=== PATIENT | male | born 1955 | race Caucasian/White ===

== ENCOUNTER 2016-09-26 09:02 | Emergency (ER) | payer OTHER ==
[2016-09-26 09:10] VITALS: RESP 20
[2016-09-26] MEDS ORDERED: LORAZEPAM 0.5 MG TAB PO ONE (09:42)
[2016-09-26] MEDS ORDERED: LORAZEPAM 0.5 MG TAB ONE (09:43)
[2016-09-26 10:24] VITALS: BP 138/80; PULSE 67; TEMP 97; O2SAT 99
[2016-09-26 10:25] LABS: APPEARANCE,URINE Clear; BILIRUBIN,URINE NEGATIVE (NEGATIVE); COLOR,URINE Yellow; GLUCOSE, URINE (UA) NEGATIVE (NEGATIVE); KETONES,URINE NEGATIVE (NEGATIVE); LEUKOCYTE ESTERASE ,URINE NEGATIVE (NEGATIVE); NITRATE,URINE NEGATIVE (NEGATIVE); OCCULT BLOOD,URINE NEGATIVE (NEG-TRACE); PH,URINE 8.5; UROBILINOGEN,URINE 0.2 (0.2-1.0 EU)
[2016-09-26 10:44] LABS: RBC,URINE NEGATIVE (0-3AV/HPF); WBC,URINE NEGATIVE (0-5AV/HPF)
== END 2016-09-26 11:47 | disposition home or self-care (01) | DRG 880 ==
LOC: ED 09:02
DX: F41.9 Anxiety disorder, unspecified (principal); R35.0 Frequency of micturition
CPT/HCPCS: 81001; 93005; 99283

== ENCOUNTER 2016-10-31 07:22 | Day surgery (SDC) | payer OTHER ==
[2016-10-31] MEDS ORDERED: BUPIVACAINE/EPI 0.5% 10 ML SOL INFIL ONE ×2 (07:30→08:31)
[2016-10-31] MEDS ORDERED: MIDAZOLAM 2 MG/2 ML SOL ONE (07:44)
[2016-10-31] MEDS ORDERED: LIDOCAINE HCL 1% MPF SOL ONE (07:44)
[2016-10-31] MEDS ORDERED: ONDANSETRON HCL 4 MG/2 ML SOL ONE (07:44)
[2016-10-31] MEDS ORDERED: PROPOFOL 500 MG/50 ML EMU IV ONE (07:44)
[2016-10-31] MEDS ORDERED: FENTANYL 100MCG/2ML SOL ONE (07:45)
[2016-10-31 09:13] VITALS: RESP 20; O2SAT 96
[2016-10-31 09:26] VITALS: BP 110/63; PULSE 55; TEMP 97
== END 2016-10-31 09:35 | disposition home or self-care (01) | DRG 607 ==
LOC: SURG 07:22
PROVIDERS: ATTEND Surgery
DX: D17.1 Benign lipomatous neoplasm of skin and subcutaneous tissue of trunk (principal)
CPT/HCPCS: G0168; J2001; J2250; J2405; J3010; J2704

== ENCOUNTER 2017-04-02 07:26 | Emergency (ER) | payer OTHER ==
[2017-04-02] MEDS ORDERED: KETOROLAC TROMETHAMINE 30 MG/ML SOL IM ONE (08:01)
[2017-04-02] MEDS ORDERED: KETOROLAC TROMETHAMINE 30 MG/ML SOL ONE (08:20)
[2017-04-02 08:42] VITALS: TEMP 97.7; O2SAT 97
[2017-04-02 09:31] VITALS: BP 146/64; PULSE 69; RESP 18
== END 2017-04-02 09:02 | disposition home or self-care (01) | DRG 552 ==
LOC: ED 07:26
DX: M54.5 Low back pain (principal)
CPT/HCPCS: 99283; J1885

== ENCOUNTER 2018-04-02 08:57 | Emergency (ER) | payer OTHER ==
[2018-04-02 09:19] VITALS: TEMP 98
[2018-04-02] MEDS ORDERED: LORAZEPAM 0.5 MG TAB PO ONE (10:20)
[2018-04-02 10:21] LABS: BASOPHILS % (AUTO) 1 % (0-3); EOSINOPHILS % (AUTO) 4 % (0-9); HEMATOCRIT 49 % (39-53); HEMOGLOBIN 15.7 gm/dl (13.5-17.7); LYMPHOCYTES % (AUTO) 23.5 % (10-50); MEAN CORPUSCULAR HEMOGLOBIN 27.6 pg (27.0-32.0); MEAN CORPUSCULAR HGB CONC 31.8 gm/dl (32.0-36.0); MEAN CORPUSCULAR VOLUME 87 fL (80-100); MONOCYTES % (AUTO) 4.6 % (0-12); NEUTROPHILS % (AUTO) 66.5 % (37-80)
[2018-04-02 10:24] LABS: ALBUMIN 3.4 gm/dl (3.4-5.0); ALKALINE PHOSPHATASE 107 IU/L (46-116); ALT 32 IU/L (14-63); AST 23 IU/L (15-37); BILIRUBIN,TOTAL 0.9 mg/dl (0.2-1.0); BLOOD UREA NITROGEN 11 mg/dl (7-18); CALCIUM 8.6 mg/dl (8.5-10.1); CARBON DIOXIDE 26.4 mEq/L (21-32); CHLORIDE 105 mMol/L (98-107); CREATININE 1.03 mg/dl (0.80-1.30); GLUCOSE 105 mg/dl (74-106); POTASSIUM 3.7 mMol/L (3.5-5.1); SODIUM 140 mMol/L (136-145); TOTAL PROTEIN 6.7 gm/dl (6.4-8.2); TROP I < 0.017 ng/ml (0.000-0.056)
[2018-04-02] MEDS ORDERED: LORAZEPAM 0.5 MG TAB ONE (10:26)
[2018-04-02 11:11] VITALS: RESP 16
[2018-04-02 12:10] VITALS: BP 126/84; PULSE 57; O2SAT 95
== END 2018-04-02 11:48 | disposition home or self-care (01) | DRG 880 ==
LOC: ED 08:57
DX: F41.9 Anxiety disorder, unspecified (principal)
CPT/HCPCS: 36415; 80053; 84484; 85025; 99283; 99284; A9270-GY

== ENCOUNTER 2018-09-11 12:26 | Emergency (ER) | payer OTHER ==
[2018-09-11 12:34] VITALS: TEMP 97.2
[2018-09-11] MEDS ORDERED: SODIUM CHLORIDE 0.9% 1000ML 1,000 ML IV ONE (12:34)
[2018-09-11] MEDS ORDERED: ACETAMINOPHEN 325 MG PO PRN (12:36)
[2018-09-11 12:45] LABS: BASOPHILS % (AUTO) 1 % (0-3); EOSINOPHILS % (AUTO) 14 % (0-9); HEMATOCRIT 46 % (39-53); LYMPHOCYTES % (AUTO) 27.4 % (10-50); MEAN CORPUSCULAR HEMOGLOBIN 28.7 pg (27.0-32.0); MEAN CORPUSCULAR HGB CONC 32.8 gm/dl (32.0-36.0); MEAN CORPUSCULAR VOLUME 88 fL (80-100); MONOCYTES % (AUTO) 6.6 % (0-12); NEUTROPHILS % (AUTO) 50.7 % (37-80)
[2018-09-11] MEDS ORDERED: ACETAMINOPHEN 325 MG ONE (12:54)
[2018-09-11 13:08] LABS: ALBUMIN 3.5 gm/dl (3.4-5.0); ALKALINE PHOSPHATASE 102 IU/L (46-116); ALT 53 IU/L (14-63); AST 42 IU/L (15-37); BILIRUBIN,TOTAL 0.8 mg/dl (0.2-1.0); BLOOD UREA NITROGEN 13 mg/dl (7-18); CALCIUM 8.8 mg/dl (8.5-10.1); CARBON DIOXIDE 25.8 mEq/L (21-32); CHLORIDE 106 mMol/L (98-107); CREATININE 1.16 mg/dl (0.80-1.30); GLUCOSE 116 mg/dl (74-106); POTASSIUM 3.6 mMol/L (3.5-5.1); SALICYLATE < 2.8 mg/dl (2.8-30.0); SODIUM 140 mMol/L (136-145); THYROID STIMULATING HORMONE 22.482 uIU/ml (0.358-3.740); TOTAL PROTEIN 6.7 gm/dl (6.4-8.2)
[2018-09-11 13:10] LABS: ACETAMINOPHEN < 2 ug/ml (10-30); ALCOHOL 0.003 gm/dl (0.000-0.08)
[2018-09-11 13:21] LABS: APPEARANCE,URINE Slightly Cloudy; BILIRUBIN,URINE NEGATIVE (NEGATIVE); COLOR,URINE Yellow; GLUCOSE, URINE (UA) NEGATIVE (NEGATIVE); KETONES,URINE NEGATIVE (NEGATIVE); LEUKOCYTE ESTERASE ,URINE NEGATIVE (NEGATIVE); NITRATE,URINE NEGATIVE (NEGATIVE); OCCULT BLOOD,URINE NEGATIVE (NEG-TRACE); PH,URINE 7.5; UROBILINOGEN,URINE 0.2 (0.2-1.0 EU)
[2018-09-11 13:36] LABS: RBC,URINE NEGATIVE (0-3AV/HPF)
[2018-09-11 13:37] LABS: AMPHETAMINES NEGATIVE (NEGATIVE); BACTERIA TRACE (< 1+); BARBITUATES NEGATIVE (NEGATIVE); BENZODIAZEPINES NEGATIVE (NEGATIVE); CANNABINOL(THC) NEGATIVE (NEGATIVE); COCAINE(COC) NEGATIVE (NEGATIVE); CRYSTALS 3+ (0-3 AVE/HPF); EPITHELIAL CELLS 0-1 (SQUAMOUS); METHADONE NEGATIVE (NEGATIVE); METHAMPHETAMINES NEGATIVE (NEGATIVE); OPIATES(OPI) NEGATIVE (NEGATIVE); OXYCODONE(OXY) NEGATIVE (NEGATIVE); PROPOXYPHENE(PPX) NEGATIVE (NEGATIVE); TRICYCLIC ANTIDEPRESSANTS NEGATIVE (NEGATIVE); WBC,URINE 0-1 (0-5AV/HPF)
[2018-09-11 13:44] VITALS: RESP 16
[2018-09-11 14:24] VITALS: BP 127/84; PULSE 65; O2SAT 96
== END 2018-09-11 14:44 | disposition home or self-care (01) | DRG 312 ==
LOC: ED 12:26
DX: R55 Syncope and collapse (principal); E86.0 Dehydration; F41.9 Anxiety disorder, unspecified; E03.9 Hypothyroidism, unspecified
CPT/HCPCS: 70450; 80053; 80305; 80307; 81001; 83735; 84443; 85025; 96365; 99285; 99291